=== PATIENT | male | born 1965 | race Caucasian/White ===

== ENCOUNTER → 2016-06-10 | Outpatient (CLI) | payer OTHER ==
--- NOTE | 2016-06-10 15:46 | CR ---
EXAMINATION: Two-view chest (PA and Lateral views). HISTORY: COPD. FINDINGS: The trachea is midline. The cardiomediastinal silhouette is within normal limits. No pulmonary infil trates, effusions or pneumothorax. Old left-sided rib fractures. Anterior fusion hardware is noted. IMPRESSION: No acute cardiopulmonary process.
[2016-06-10 16:21] LABS: CHLORIDE,CL 105 mmol/L (98-110); SODIUM,NA 138 mmol/L (136-146)
== END | disposition home or self-care (01) ==
LOC: MW.CHIM 14:55
PROVIDERS: ATTEND Internal Medicine
DX: J44.9 Chronic obstructive pulmonary disease, unspecified (principal); I10 Essential (primary) hypertension
CPT/HCPCS: 36415; 71020; 71020-26; 80053; 81001; 85025; 85610; 85730; 93005

== ENCOUNTER 2017-08-27 07:27 | Day surgery (SDC) | payer OTHER ==
[~2017-08-27 07:27] MED LIST: Lactated Ringers 1,000 ML IV SCH; Lidocaine 2% 5 ML SDV ONE; Propofol 200 MG/20 ML SDV ONE; fentaNYL 100 MCG/2 ML SDV ONE
[2017-08-27] MEDS ORDERED: Albuterol/Ipratropium 3.0-0.5 MG/3 ML Neb Soln NEB PRN (07:30)
--- NOTE | 2017-08-27 08:32 | PCM.PREANE ---
Preanesthetic Assessment - Anesthesia/Transfusion/Family Hx Anesthesia History: Prior Anesthesia Without Reaction Other Type of Anesthesia Reaction Comment: Dawson any known problems in past, no known family hx: problms Family History of Anesthesia Reaction: No Transfusion History: No Prior Transfusion(s) Intubation History: Unknown - Review of Systems General: No Symptoms Pulmonary: No Symptoms Cardiovascular: No Symptoms Gastrointestinal: No Symptoms, Other (multiple polyos 3 years ago ) Neurological: No Symptoms Other: Reports: None - Physical Assessment Height: 1.91 m Weight: 135.624 kg ASA Class: 3 Mental Status: Alert & Oriented x3 Airway Class: Mallampati = 2 Dentition: Reports: Normal Dentition, Broken Tooth/Teeth (chipped tooth left lower (back)) Thyro-Mental Finger Breadths: 3 Mouth Opening Finger Breadths: 3 ROM/Head Extension: Full Lungs: Clear to Auscultation, Normal Respiratory Effort Cardiovascular: Regular Rate, Regular Rhythm - Allergies Allergies/Adverse Reactions: Allergies Allergy/AdvReac Type Severity Reaction Status Date / Time No Known Allergies Allergy Verified 08/22/17 08:04 - Blood Blood Available: No - Anesthesia Plan Pre-Op Medication Ordered: None - Acknowledgements Anesthesia Type Planned: MAC Pt an Appropriate Candidate for the Planned Anesthesia: Yes Alternatives and Risks of Anesthesia Discussed w Pt/Guardian: Yes Pt/Guardian Understands and Agrees with Anesthesia Plan: Yes PreAnesthesia Questionnaire HEENT History: Reports: Hard of Hearing, Other (See Below) Other HEENT History: wears glasses, [place] hearing aids Cardiovascular History: Reports: Hypertension Respiratory History: Reports: Asthma, COPD Gastrointestinal History: Reports: Colon Polyp Genitourinary History: Reports: None Musculoskeletal History: Reports: Arthritis, Neck Pain, Chronic Neurological History: Reports: Neuropathy, Peripheral Psychiatric History: Reports: Anxiety Endocrine/Metabolic History: Reports: Diabetes, Type II, Obesity/BMI 30+ Hematologic History: Reports: None Dermatologic History: Reports: None - Past Surgical History Head Surgeries/Procedures: HEENT Surgical History: Reports: Tonsillectomy GI Surgical History: Reports: Appendectomy, Colonoscopy (3 years ago, multiple polyps) Neurological Surgical History: Reports: C-Spine Other Neurological Surgeries/Procedures: neck surgery x2, plate and screws to neck Musculoskeletal Surgical History: Reports: Arthroscopic Knee - SUBSTANCE USE Smoking Status *Q: Current Every Day Smoker (1/2 ppd) Tobacco Use Within Last Twelve Months: Cigarettes Recreational Drug Use History: No - HOME MEDS Home Medications: Home Meds Enalapril Maleate 1 tab PO BRK 04/01/14 [History] Albuterol Sulfate [Proair Hfa] 2 puff INH ASDIRECTED PRN 08/22/17 [History] Cyanocobalamin/FA/Pyridoxine [Folbic Tablet] 1 tab PO BID 08/22/17 [History] DULoxetine HCl [Cymbalta] 90 mg PO DAILY 08/22/17 [History] Diclofenac Sodium 1 applic TOP ASDIRECTED PRN 08/22/17 [History] Gabapentin [Neurontin] 2 tab PO TID 08/22/17 [History] Glycopyrrolate/Formoterol Fum [Bevespi Aerosphere Inhaler] 2 puff INH BID [History] Hydrocodone/Acetaminophen [Hydrocodon-Acetaminophen 5-325] 1 tab PO ASDIRECTED PRN 08/22/17 [History] Ketamine Compounded Cream 1 applic TOP ASDIRECTED PRN 08/22/17 [History] Lidocaine/Prilocaine [Lidocaine-Prilocaine Cream] 1 applic TOP ASDIRECTED PRN [History] Ozempic 0.5 mg SUBCUT WEEKLY 08/22/17 [History] - CURRENT (IN HOUSE) MEDS Current Meds: Current Medications Albuterol/Ipratropium (Duoneb 3.0-0.5 Mg/3 Ml) 3 ml NEB ONETIME PRN PRN Reason: Shortness of Breath Lactated Ringer's (Ringers, Lactated) 1,000 mls @ 125 mls/hr IV ASDIRECTED [facility] Discontinued Medications Fentanyl (Sublimaze) Confirm Administered Dose 100 mcg .ROUTE .STK-MED ONE Stop: 08/27/17 07:14 Lidocaine (Xylocaine-Mpf 2%) Confirm Administered Dose 5 ml .ROUTE .STK-MED ONE Stop: 08/27/17 07:14 Propofol (Diprivan 20 Ml) Confirm Administered Dose 400 mg .ROUTE .STK-MED ONE Stop: 08/27/17 07:14
--- NOTE | 2017-08-27 09:17 | PCM.OPNOTE ---
- General Post-Op/Procedure Note Date of Surgery/Procedure: 08/27/17 Operative Procedure(s): Colonoscopy with snare transverse colon polypectomy Pre Op Diagnosis: Personal history of colon polyps. Change in bowel habits. Post-Op Diagnosis: Transverse colon polyp Anesthesia Technique: MAC (ASA III) Primary Surgeon: Carroll Fierro Condition: Good Free Text/Narrative:: DICTATION [id number] CPT CODE [id number]
[2017-08-27] MEDS ORDERED: Lactated Ringers 1,000 ML IV SCH (09:30)
[2017-08-27 09:31] VITALS: BP 132/72
--- NOTE | 2017-08-27 13:18 | OR ---
SURGEON: Carroll Fierro M.D. DATE OF PROCEDURE: 08/27/2017 OPERATIONS PERFORMED: Colonoscopy with snare, transverse colon polypectomy. ANESTHESIA: MAC. ASA CLASSIFICATION: III. PREOPERATIVE DIAGNOSES: 1. Personal history of colon polyps. 2. Change in bowel habits. POSTOPERATIVE DIAGNOSIS: Transverse colon polyp. DESCRIPTION OF PROCEDURE: The patient was taken to the endoscopy room and positioned on the endoscopy table in the left lateral decubitus position. Time-out was called for appropriate identification of the patient and procedure. Monitored anesthesia care was provided. The colonoscope was inserted into the rectum and advanced without difficulty to the cecum where the colonoscope was retroflexed to visualize the ascending colon from below. The colonoscope was then straightened and slowly withdrawn. The cecum, ascending colon, and hepatic flexure showed no tumors, polyps, diverticula, or angiodysplastic changes. One polyp was encountered in the distal transverse colon and removed with snare electrocautery. The specimen was recovered in the suction trap. Biopsy forceps was used to trim a little bit more of the polyp that was above the snare sunny. No significant bleeding was noted. The remainder of the transverse colon, splenic flexure, descending colon, sigmoid colon, rectum were again very well visualized. Again, no tumors, polyps, diverticula, or angiodysplastic changes were noted. Once the colonoscope was withdrawn to the rectum, it was retroflexed to visualize the anal orifice from above. No tumors or polyps were seen and there were no acute hemorrhoidal changes. The colonoscope was then straightened, the rectum aspirated, and the colonoscope removed. The patient tolerated the procedure well and was taken to recovery room in stable condition. ROSANA SHERMAN /[id number]
== END 2017-08-27 10:30 | disposition home or self-care (01) ==
LOC: MW.SDS 07:27
PROVIDERS: ATTEND Surgery
DX: R19.4 Change in bowel habit (principal); D12.3 Benign neoplasm of transverse colon; I10 Essential (primary) hypertension; E11.9 Type 2 diabetes mellitus without complications; J44.9 Chronic obstructive pulmonary disease, unspecified; F17.210 Nicotine dependence, cigarettes, uncomplicated; E66.9 Obesity, unspecified; Z68.37 Body mass index [BMI] 37.0-37.9, adult; F41.9 Anxiety disorder, unspecified; Z86.010 Personal history of colon polyps; Z79.899 Other long term (current) drug therapy
CPT/HCPCS: 45385; 82962; J3010; J7120; 88305; J2704

== ENCOUNTER 2017-08-28 14:29 | Inpatient (IN) | payer OTHER ==
--- NOTE | 2017-08-28 15:05 | EDM.PDOC ---
ED HPI GENERAL MEDICAL PROBLEM - General Chief Complaint: Abdominal Pain Stated Complaint: PAIN Time Seen by Provider: 08/28/17 14:50 Source of Information: Reports: Patient History Limitations: Reports: No Limitations - History of Present Illness INITIAL COMMENTS - FREE TEXT/NARRATIVE: HISTORY AND PHYSICAL: History of present illness: [Patient comes to the emergency room complaining of abdominal pain. Had a colonoscopy yesterday morning with Dr. Fierro. States the colonoscopy went well and he was discharged from same day surgery by 11 AM. He was very hungry upon discharge so he ate a sandwich and divehi fries. He vomited at 3 PM and 5: 30 PM yesterday. Took 3 Gas-X at 6:30 last evening. Soon after sharp abdominal pains began through his abdomen. This has continued into today. Is affecting his upper and lower abdomen. Has been passing a small amount of flatulence. He estimates that he passed 1 tablespoon of stool yesterday. He has not had much appetite since he ate yesterday. Noted a temperature of 99.4 at home today. He took some ibuprofen at 7 PM last night and applied a heating pad which really didn't improve his symptoms. His abdomen is very tender when he pushes on it and with position changes. No chills, chest pain, shortness of breath or difficulty breathing. No vomiting since last night. Is drinking a lot of fluids but doesn't believe that he is urinating much. Has not noticed any swelling or pain to his extremities. No weakness numbness or tingling or loss of consciousness. Admits to regular tobacco use. Medical history significant for hypertension, COPD, osteoarthritis, peripheral neuropathy, type 2 diabetes. Surgical history includes tonsillectomy, appendectomy, colonoscopy on August 27, 2017 with 1 polyp biopsy.] Review of systems: As per history of present illness and below otherwise all systems reviewed and negative. Past medical history: As per history of present illness and as reviewed below otherwise noncontributory. Surgical history: As per history of present illness and as reviewed below otherwise noncontributory. Social history: No reported history of drug or alcohol abuse. Family history: As per history of present illness and as reviewed below otherwise noncontributory. Physical exam: HEENT: Atraumatic, normocephalic. Oral mucous membranes are moist and pink. Neck supple no lymphadenopathy. Lungs: Moderate inspiratory and expiratory wheezing appreciated throughout all lung davis. breath sounds equal bilaterally. Heart: S1S2, regular, negative for clicks, rubs, or JVD. Abdomen: Bowel sounds are hypoactive but present throughout. Is nondistended. He is tender with light palpation throughout his entire abdomen. Masses guarding or rebound appreciated. Negative for costovertebral tenderness. Pelvis: Stable nontender. Genitourinary: Deferred. Rectal: Deferred. Extremities: Atraumatic, negative for cords or calf pain. No swelling or cyanosis to feet or lower legs.ar unremarkable. Neuro: Awake, alert, oriented. Motor and sensory unremarkable throughout. Exam nonfocal. Alert, oriented, pleasant and conversational. Diagnostics: [CBC, CMP, urinalysis with micro-, blood cultures x2, lactic acid, CT abdomen and pelvis with contrast] Therapeutics: [1 liter NS at 125mL/hour, Morphine 4mg IV, Zosyn 3.375mg] Impression: [bowel microperforation, s/p colonoscopy] Plan: [Dr. Cynthia Trent calls with report of fat stranding around the mid transverse colon. Air is noted within and outside of the abdominal wall. These findings are likely attributed to a microperforation. No abscess or diverticular disease appreciated. WBC 10.76, Na 135, BUN 16, creatinine 1.4, Urine is dark yellow and clear. Nitrites negative. Dr. Carroll Fierro sees patient in the ER at 1720 and admits patient. He requests that orders for NS and Zosyn be DC'd, and he will write the orders that he would like. ] Definitive disposition and diagnosis as appropriate pending reevaluation and review of above. Upper Abdominal Pain Score (Numeric/FACES): 3 - Related Data Allergies Allergy/AdvReac Type Severity Reaction Status Date / Time No Known Allergies Allergy Verified 08/28/17 14:34 Home Meds: Home Meds Enalapril Maleate 1 tab PO DAILY 04/01/14 [History] Albuterol Sulfate [Proair Hfa] 2 puff INH ASDIRECTED PRN 08/22/17 [History] Cyanocobalamin/FA/Pyridoxine [Folbic Tablet] 1 tab PO BID 08/22/17 [History] DULoxetine HCl [Cymbalta] 90 mg PO DAILY 08/22/17 [History] Diclofenac Sodium 1 applic TOP ASDIRECTED PRN 08/22/17 [History] Gabapentin [Neurontin] 2 tab PO TID 08/22/17 [History] Glycopyrrolate/Formoterol Fum [Bevespi Aerosphere Inhaler] 2 puff INH BID [History] Hydrocodone/Acetaminophen [Hydrocodon-Acetaminophen 5-325] 1 tab PO ASDIRECTED PRN 08/22/17 [History] Ozempic 0.5 mg SUBCUT WEEKLY 08/22/17 [History] Past Medical History HEENT History: Reports: Hard of Hearing, Other (See Below) Other HEENT History: wears glasses, [place] hearing aids Cardiovascular History: Reports: Hypertension Respiratory History: Reports: Asthma, COPD Gastrointestinal History: Reports: Colon Polyp Genitourinary History: Reports: None Musculoskeletal History: Reports: Arthritis, Neck Pain, Chronic Neurological History: Reports: Neuropathy, Peripheral Psychiatric History: Reports: Anxiety, Depression Endocrine/Metabolic History: Reports: Diabetes, Type II, Obesity/BMI 30+ Hematologic History: Reports: None Dermatologic History: Reports: None - Infectious Disease History Infectious Disease History: Reports: None - Past Surgical History HEENT Surgical History: Reports: Tonsillectomy GI Surgical History: Reports: Appendectomy, Colonoscopy Other GI Surgeries/Procedures: colonoscopy 08/27/2017 Neurological Surgical History: Reports: C-Spine Other Neurological Surgeries/Procedures: neck surgery x2, plate and screws to neck Musculoskeletal Surgical History: Reports: Arthroscopic Knee Social & Family History - Family History Family Medical History: Noncontributory - Tobacco Use Smoking Status *Q: Current Every Day Smoker Years of Tobacco use: 35 Packs/Tins Daily: 0.3 - Caffeine Use Caffeine Use: Reports: Coffee, Soda - Alcohol Use Days Per Week of Alcohol Use: 1 Number of Drinks Per Day: 4 Total Drinks Per Week: 4 Date of Last Drink: 08/24/17 - Recreational Drug Use Recreational Drug Use: No ED ROS GENERAL - Review of Systems Review Of Systems: ROS reveals no pertinent complaints other than HPI. ED EXAM, GI/ABD - Physical Exam Exam: See Below Course - Vital Signs Last Recorded V/S: Last Vital Signs Temp 97.9 F 08/28/17 18:15 Pulse 69 08/28/17 18:15 Resp 16 08/28/17 18:15 BP 127/78 08/28/17 18:15 Pulse Ox 96 08/28/17 18:15 - Orders/Labs/Meds Orders: Active Orders 24 hr Category Date Time Status Abdomen Pelvis w Cont [CT] Stat Exams 08/28/17 14:59 Taken CULTURE BLOOD [BC] Stat Lab 08/28/17 17:15 Received CULTURE BLOOD [BC] Stat Lab 08/28/17 17:22 Received UA W/MICROSCOPIC [URIN] Stat Lab 08/28/17 15:38 Ordered Lactated Ringers [Ringers, Lactated] 1,000 ml Med 08/28/17 17:45 Active IV ASDIRECTED Blood Culture x2 Reflex Set [OM.PC] Stat Oth 08/28/17 17:04 Ordered Medication Orders Lactated Ringer's (Ringers, Lactated) 1,000 mls @ 125 mls/hr IV ASDIRECTED [facility] Last Admin: 08/28/17 17:39 Dose: 125 mls/hr Cefoxitin Sodium 1 gm/ Premix 50 mls @ 100 mls/hr IV Q6H [facility] Lactated Ringer's (Ringers, Lactated) 1,000 mls @ 125 mls/hr IV ASDIRECTED [facility] Metronidazole 500 mg/ Premix 100 mls @ 100 mls/hr IV Q6H [facility] Morphine Sulfate (Morphine Licensed Staff Mft 30 Mg In 30 Ml) 30 mg IV SEECOMMENT [facility]; Protocol Labs: Laboratory Tests 08/28/17 08/28/17 08/28/17 Range/Units 15:10 15:10 15:38 WBC 10.76 (4.0-11.0) K/uL RBC 4.64 (4.50-5.90) M/uL Hgb 15.0 (13.0-17.0) g/dL Hct 42.5 (38.0-50.0) % MCV 91.6 (80.0-98.0) fL MCH 32.3 H (27.0-32.0) pg MCHC 35.3 (31.0-37.0) g/dL RDW Std Deviation 42.9 (28.0-62.0) fl RDW Coeff of Brendon 13 (11.0-15.0) % Plt Count 160 (150-400) K/uL MPV 10.90 (7.40-12.00) fL Neut % (Auto) 74.2 (48.0-80.0) % Lymph % (Auto) 16.6 (16.0-40.0) % Phelps % (Auto) 8.5 (0.0-15.0) % Eos % (Auto) 0.4 (0.0-7.0) % Baso % (Auto) 0.3 (0.0-1.5) % Neut # (Auto) 8.0 H (1.4-5.7) K/uL Lymph # (Auto) 1.8 (0.6-2.4) K/uL Phelps # (Auto) 0.9 H (0.0-0.8) K/uL Eos # (Auto) 0.0 (0.0-0.7) K/uL Baso # (Auto) 0.0 (0.0-0.1) K/uL Nucleated RBC % 0.0 /100WBC Nucleated RBCs # 0 K/uL Lactate (0.20-2.00) mmol/L Sodium 135 L (136-148) mmol/L Potassium 4.2 (3.5-5.1) mmol/L Chloride 101 (98-107) mmol/L Carbon Dioxide 25.8 (21.0-32.0) mmol/L BUN 16 (7.0-18.0) mg/dL Creatinine 1.4 H (0.8-1.3) mg/dL Est Cr Clr Drug Dosing 75.45 mL/min Estimated GFR (MDRD) 53.6 ml/min Glucose 125 H (74-106) mg/dL Calcium 8.6 (8.5-10.1) mg/dL Total Bilirubin 2.0 H (0.2-1.0) mg/dL AST 23 (15-37) IU/L ALT 46 (14-63) IU/L Alkaline Phosphatase 81 (46-116) U/L Total Protein 7.0 (6.4-8.2) g/dL Albumin 3.4 (3.4-5.0) g/dL Globulin 3.6 H (2.0-3.5) g/dL Albumin/Globulin Ratio 0.9 L (1.3-2.8) Urine Color DARK YELLOW Urine Appearance CLEAR Urine pH 6.5 (5.0-8.0) Ur Specific [place] 1.020 (1.001-1.035) Urine Protein 30 (NEGATIVE) mg/dL Urine Glucose (UA) NEGATIVE (NEGATIVE) mg/dL Urine Ketones TRACE H (NEGATIVE) mg/dL Urine Occult Blood NEGATIVE (NEGATIVE) Urine Nitrite NEGATIVE (NEGATIVE) Urine Bilirubin NEGATIVE (NEGATIVE) Urine Urobilinogen 2.0 H (<2.0) EU/dL Ur Leukocyte Esterase NEGATIVE (NEGATIVE) Urine RBC 0-2 (0-2/HPF) Urine WBC 0-1 (0-5/HPF) Ur Epithelial Cells OCCASIONAL (NONE-FEW) Urine Bacteria FEW (NEGATIVE) Urine Mucus LIGHT (NONE-MOD) 08/28/17 Range/Units 17:15 WBC (4.0-11.0) K/uL RBC (4.50-5.90) M/uL Hgb (13.0-17.0) g/dL Hct (38.0-50.0) % MCV (80.0-98.0) fL MCH (27.0-32.0) pg MCHC (31.0-37.0) g/dL RDW Std Deviation (28.0-62.0) fl RDW Coeff of Brendon (11.0-15.0) % Plt Count (150-400) K/uL MPV (7.40-12.00) fL Neut % (Auto) (48.0-80.0) % Lymph % (Auto) (16.0-40.0) % Phelps % (Auto) (0.0-15.0) % Eos % (Auto) (0.0-7.0) % Baso % (Auto) (0.0-1.5) % Neut # (Auto) (1.4-5.7) K/uL Lymph # (Auto) (0.6-2.4) K/uL Phelps # (Auto) (0.0-0.8) K/uL Eos # (Auto) (0.0-0.7) K/uL Baso # (Auto) (0.0-0.1) K/uL Nucleated RBC % /100WBC Nucleated RBCs # K/uL Lactate 1.7 (0.20-2.00) mmol/L Sodium (136-148) mmol/L Potassium (3.5-5.1) mmol/L Chloride (98-107) mmol/L Carbon Dioxide (21.0-32.0) mmol/L BUN (7.0-18.0) mg/dL Creatinine (0.8-1.3) mg/dL Est Cr Clr Drug Dosing mL/min Estimated GFR (MDRD) ml/min Glucose (74-106) mg/dL Calcium (8.5-10.1) mg/dL Total Bilirubin (0.2-1.0) mg/dL AST (15-37) IU/L ALT (14-63) IU/L Alkaline Phosphatase (46-116) U/L Total Protein (6.4-8.2) g/dL Albumin (3.4-5.0) g/dL Globulin (2.0-3.5) g/dL Albumin/Globulin Ratio (1.3-2.8) Urine Color Urine Appearance Urine pH (5.0-8.0) Ur Specific [place] (1.001-1.035) Urine Protein (NEGATIVE) mg/dL Urine Glucose (UA) (NEGATIVE) mg/dL Urine Ketones (NEGATIVE) mg/dL Urine Occult Blood (NEGATIVE) Urine Nitrite (NEGATIVE) Urine Bilirubin (NEGATIVE) Urine Urobilinogen (<2.0) EU/dL Ur Leukocyte Esterase (NEGATIVE) Urine RBC (0-2/HPF) Urine WBC (0-5/HPF) Ur Epithelial Cells (NONE-FEW) Urine Bacteria (NEGATIVE) Urine Mucus (NONE-MOD) Meds: Medications Generic Name Dose Route Start Last Admin Trade Name Freq PRN Reason Stop Dose Admin Lactated Ringer's 1,000 mls @ 125 mls/hr 08/28/17 17:45 08/28/17 17:39 Ringers, Lactated IV 125 mls/hr ASDIRECTED [facility] Administration Cefoxitin Sodium 1 gm/ Premix 50 mls @ 100 mls/hr 08/29/17 00:00 IV Q6H [facility] Lactated Ringer's 1,000 mls @ 125 mls/hr 08/28/17 17:45 Ringers, Lactated IV ASDIRECTED [facility] Metronidazole 500 mg/ Premix 100 mls @ 100 mls/hr 08/28/17 19:00 IV Q6H [facility] Morphine Sulfate 30 mg 08/28/17 18:00 Morphine Licensed Staff Mft 30 Mg In 30 Ml IV [facility]EC[facility] Protocol Discontinued Medications Generic Name Dose Route Start Last Admin Trade Name Freq PRN Reason Stop Dose Admin Piperacillin Sod/Tazobactam 50 mls @ 100 mls/hr 08/28/17 17:05 08/28/17 18:16 Sod 3.375 gm/ Sodium Chloride IV 08/28/17 17:34 Not Given ONETIME ONE Sodium Chloride 1,000 mls @ 125 mls/hr 08/28/17 17:04 08/28/17 18:15 Normal Saline IV 08/29/17 01:03 Not Given STAT ONE Cefoxitin Sodium 2 gm/ Premix 50 mls @ 100 mls/hr 08/28/17 17:46 08/28/17 18: 13 IV 08/28/17 18:15 100 mls/hr ONETIME ONE Administration Metronidazole 500 mg/ Premix 100 mls @ 100 mls/hr 08/28/17 18:00 IV QID [facility] Iopamidol 85 ml 08/28/17 16:11 08/28/17 16:15 Isovue Multipack-370 (76%) IVPUSH 08/28/17 16:12 85 ml ONETIME STA Administration Morphine Sulfate 4 mg 08/28/17 17:05 08/28/17 17:40 Morphine IVPUSH 08/28/17 17:06 4 mg ONETIME ONE Administration Departure - Departure Time of Disposition: 17:40 Disposition: Admitted As Inpatient 67 Clinical Impression: Perforation of colon as colonoscopy complication - Discharge Information - My Orders Last 24 Hours: My Active Orders 08/28/17 14:59 Abdomen Pelvis w Cont [CT] Stat 08/28/17 15:38 UA W/MICROSCOPIC [URIN] Stat 08/28/17 17:04 Blood Culture x2 Reflex Set [OM.PC] Stat 08/28/17 17:15 CULTURE BLOOD [BC] Stat 08/28/17 17:22 CULTURE BLOOD [BC] Stat - Assessment/Plan Last 24 Hours: My Active Orders 08/28/17 14:59 Abdomen Pelvis w Cont [CT] Stat 08/28/17 15:38 UA W/MICROSCOPIC [URIN] Stat 08/28/17 17:04 Blood Culture x2 Reflex Set [OM.PC] Stat 08/28/17 17:15 CULTURE BLOOD [BC] Stat 08/28/17 17:22 CULTURE BLOOD [BC] Stat
[2017-08-28] MEDS ORDERED: Iopamidol 755 MG/ML 500 ML Multipack Bottle IVPUSH STA (16:11)
[2017-08-28] MEDS ORDERED: Sodium Chloride 0.9% 1,000 ML IV ONE (17:04)
[2017-08-28] MEDS ORDERED: Morphine 4 MG/ML Syringe IVPUSH ONE (17:05)
[2017-08-28] MEDS ORDERED: Piperacillin/Tazobactam 3.375 GM in Sodium Chloride 0.9% 50 ML IV ONE (17:05)
[2017-08-28] MEDS: Lactated Ringers 1,000 ML IV SCH (17:39)
[2017-08-28] MEDS ORDERED: Lactated Ringers 1,000 ML IV SCH (17:45)
[2017-08-28] MEDS ORDERED: cefOXitin 2 GM in Premix Bag 1 BAG IV ONE (17:46)
--- NOTE | 2017-08-28 17:51 | PCM.HP ---
H&P History of Present Illness - General Date of Service: 08/28/17 Admit Problem/Dx: Admission Diagnosis/Problem Admission Diagnosis/Problem Perforation of intestine Source of Information: Patient, Family History Limitations: Reports: No Limitations - History of Present Illness Initial Comments - Free Text/Narative: Patient is a 51-year-old gentleman who underwent colonoscopy with snare, distal transverse colon polypectomy on August 27. He did develop abdominal pain last night but did not bring this to everyone's attention. This was associated with nausea and vomiting. He denies any fever or chills. Pain did not improve and he called the office this morning stating he felt a little bit better. He was cautioned that if he did not improve significantly through the day and he should present to the emergency room. He did present this afternoon and workup in the emergency room included laboratory evaluation and a CT scan of the abdomen. The CT scan of the abdomen was read as showing a microperforation with possible small amount of air in the bowel wall or just outside the bowel wall. No abscess was noted. There is no large pneumoperitoneum. Laboratory evaluation including a white count did not reveal any leukocytosis, left shift, or thrombocytopenia. He currently states his pain is a 2 when he is laying still but a 7 or 8, when he gets out of bed. Symptom Onset Date: 08/27/17 Duration of Symptoms: Reports: Hour(s):, Getting Worse, Heavy Location: Reports: Abdomen Quality: Reports: Pressure, Throbbing Severity: Moderate Improves with: Reports: Immobilization, Rest Worsens with: Reports: Movement Context: Reports: Sick Contact Associated Symptoms: Reports: Loss of Appetite, Malaise, Nausea/Vomiting. Denies: Fever/Chills Upper Abdominal Pain Score (Numeric/FACES): 3 - Related Data Allergies/Adverse Reactions: Allergies Allergy/AdvReac Type Severity Reaction Status Date / Time No Known Allergies Allergy Verified 08/28/17 14:34 Home Medications: Home Meds Enalapril Maleate 1 tab PO DAILY 04/01/14 [History] Albuterol Sulfate [Proair Hfa] 2 puff INH ASDIRECTED PRN 08/22/17 [History] Cyanocobalamin/FA/Pyridoxine [Folbic Tablet] 1 tab PO BID 08/22/17 [History] DULoxetine HCl [Cymbalta] 90 mg PO DAILY 08/22/17 [History] Diclofenac Sodium 1 applic TOP ASDIRECTED PRN 08/22/17 [History] Gabapentin [Neurontin] 2 tab PO TID 08/22/17 [History] Glycopyrrolate/Formoterol Fum [Bevespi Aerosphere Inhaler] 2 puff INH BID [History] Hydrocodone/Acetaminophen [Hydrocodon-Acetaminophen 5-325] 1 tab PO ASDIRECTED PRN 08/22/17 [History] Ozempic 0.5 mg SUBCUT WEEKLY 08/22/17 [History] Past Medical History HEENT History: Reports: Hard of Hearing, Other (See Below) Other HEENT History: wears glasses, [place] hearing aids Cardiovascular History: Reports: Hypertension Respiratory History: Reports: Asthma, COPD Gastrointestinal History: Reports: Colon Polyp Genitourinary History: Reports: None Musculoskeletal History: Reports: Arthritis, Neck Pain, Chronic Neurological History: Reports: Neuropathy, Peripheral Psychiatric History: Reports: Anxiety, Depression Endocrine/Metabolic History: Reports: Diabetes, Type II, Obesity/BMI 30+ Hematologic History: Reports: None Dermatologic History: Reports: None - Infectious Disease History Infectious Disease History: Reports: None - Past Surgical History HEENT Surgical History: Reports: Tonsillectomy GI Surgical History: Reports: Appendectomy, Colonoscopy Other GI Surgeries/Procedures: colonoscopy 08/27/2017 Neurological Surgical History: Reports: C-Spine Other Neurological Surgeries/Procedures: neck surgery x2, plate and screws to neck Musculoskeletal Surgical History: Reports: Arthroscopic Knee Social & Family History - Family History Family Medical History: Noncontributory - Tobacco Use Smoking Status *Q: Current Every Day Smoker Years of Tobacco use: 35 Packs/Tins Daily: 0.3 - Caffeine Use Caffeine Use: Reports: Coffee, Soda - Alcohol Use Days Per Week of Alcohol Use: 1 Number of Drinks Per Day: 4 Total Drinks Per Week: 4 Date of Last Drink: 08/24/17 - Recreational Drug Use Recreational Drug Use: No H&P Review of Systems - Review of Systems: Review Of Systems: See Below General: Reports: Malaise, Weakness, Decreased Appetite. Denies: Fever, Chills , Night Sweats HEENT: Denies: Headaches, Vertigo Pulmonary: Denies: Shortness of Breath, Wheezing Cardiovascular: Denies: Chest Pain, Palpitations Gastrointestinal: Reports: Abdominal Pain, Anorexia, Decreased Appetite, Nausea , Vomiting. Denies: Black Stool, Bloody Stool, Constipation, Diarrhea, Flatus, Hematochezia, Melena Genitourinary: Denies: Dysuria, Frequency, Burning Musculoskeletal: Denies: Neck Pain Skin: Denies: Cyanosis, Jaundice, Mottled, Pallor Psychiatric: Denies: Confusion, Depression, Anxiety Neurological: Reports: No Symptoms Hematologic/Lymphatic: Denies: Anemia, Easy Bleeding Immunologic: Reports: No Symptoms Exam - Exam Exam: See Below - Vital Signs Vital Signs: Last Vital Signs Temp 96.8 F 08/28/17 14:38 Pulse 81 08/28/17 14:38 Resp 18 08/28/17 14:38 BP 113/77 08/28/17 14:38 Pulse Ox 96 08/28/17 14:38 Weight: 290 lb - Exam Quality Assessment: Supplemental Oxygen General: Alert, Oriented, Moderate Distress. No: Sedated, Lethargic, Obtunded HEENT: Conjunctiva Clear, EOMI, Nares Patent, Pupils Equal. No: Scleral Icterus Neck: Supple, Trachea Midline Lungs: Clear to Auscultation (distant breath sounds secondary to COPD) Cardiovascular: Regular Rate, Regular Rhythm, Normal S1, Normal S2. No: Tachycardia GI/Abdominal Exam: Soft, No Distention, Guarding, Rebound, Tender, Abnormal Bowel Sounds (hypoactive). No: Rigid (Male) Exam: No Hernia, Normal Inspection Back Exam: Normal Inspection Extremities: Normal Inspection, Normal Range of Motion Peripheral Pulses: 4+: Posterior Tibial (L), Posterior Tibial (R), Dorsalis Pedis (L), Dorsalis Pedis (R) Skin: Warm, Dry, Intact Neurological: Cranial Nerves Intact, Reflexes Equal Bilateral Psychiatric: Alert, Normal Affect, Normal Mood - Patient Data Lab Results Last 24 hrs: Laboratory Results - last 24 hr 08/28/17 08/28/17 08/28/17 Range/Units 15:10 15:10 15:38 WBC 10.76 (4.0-11.0) K/uL RBC 4.64 (4.50-5.90) M/uL Hgb 15.0 (13.0-17.0) g/dL Hct 42.5 (38.0-50.0) % MCV 91.6 (80.0-98.0) fL MCH 32.3 H (27.0-32.0) pg MCHC 35.3 (31.0-37.0) g/dL RDW Std Deviation 42.9 (28.0-62.0) fl RDW Coeff of Brendon 13 (11.0-15.0) % Plt Count 160 (150-400) K/uL MPV 10.90 (7.40-12.00) fL Neut % (Auto) 74.2 (48.0-80.0) % Lymph % (Auto) 16.6 (16.0-40.0) % [place] % (Auto) 8.5 (0.0-15.0) % Eos % (Auto) 0.4 (0.0-7.0) % Baso % (Auto) 0.3 (0.0-1.5) % Neut # (Auto) 8.0 H (1.4-5.7) K/uL Lymph # (Auto) 1.8 (0.6-2.4) K/uL [place] # (Auto) 0.9 H (0.0-0.8) K/uL Eos # (Auto) 0.0 (0.0-0.7) K/uL Baso # (Auto) 0.0 (0.0-0.1) K/uL Nucleated RBC % 0.0 /100WBC Nucleated RBCs # 0 K/uL Lactate (0.20-2.00) mmol/L Sodium 135 L (136-148) mmol/L Potassium 4.2 (3.5-5.1) mmol/L Chloride 101 (98-107) mmol/L Carbon Dioxide 25.8 (21.0-32.0) mmol/L BUN 16 (7.0-18.0) mg/dL Creatinine 1.4 H (0.8-1.3) mg/dL Est Cr Clr Drug Dosing 75.45 mL/min Estimated GFR (MDRD) 53.6 ml/min Glucose 125 H (74-106) mg/dL Calcium 8.6 (8.5-10.1) mg/dL Total Bilirubin 2.0 H (0.2-1.0) mg/dL AST 23 (15-37) IU/L ALT 46 (14-63) IU/L Alkaline Phosphatase 81 (46-116) U/L Total Protein 7.0 (6.4-8.2) g/dL Albumin 3.4 (3.4-5.0) g/dL Globulin 3.6 H (2.0-3.5) g/dL Albumin/Globulin Ratio 0.9 L (1.3-2.8) Urine Color DARK YELLOW Urine Appearance CLEAR Urine pH 6.5 (5.0-8.0) Ur Specific [place] 1.020 (1.001-1.035) Urine Protein 30 (NEGATIVE) mg/dL Urine Glucose (UA) NEGATIVE (NEGATIVE) mg/dL Urine Ketones TRACE H (NEGATIVE) mg/dL Urine Occult Blood NEGATIVE (NEGATIVE) Urine Nitrite NEGATIVE (NEGATIVE) Urine Bilirubin NEGATIVE (NEGATIVE) Urine Urobilinogen 2.0 H (<2.0) EU/dL Ur Leukocyte Esterase NEGATIVE (NEGATIVE) Urine RBC 0-2 (0-2/HPF) Urine WBC 0-1 (0-5/HPF) Ur Epithelial Cells OCCASIONAL (NONE-FEW) Urine Bacteria FEW (NEGATIVE) Urine Mucus LIGHT (NONE-MOD) 08/28/17 Range/Units 17:15 WBC (4.0-11.0) K/uL RBC (4.50-5.90) M/uL Hgb (13.0-17.0) g/dL Hct (38.0-50.0) % MCV (80.0-98.0) fL MCH (27.0-32.0) pg MCHC (31.0-37.0) g/dL RDW Std Deviation (28.0-62.0) fl RDW Coeff of Brendon (11.0-15.0) % Plt Count (150-400) K/uL MPV (7.40-12.00) fL Neut % (Auto) (48.0-80.0) % Lymph % (Auto) (16.0-40.0) % [place] % (Auto) (0.0-15.0) % Eos % (Auto) (0.0-7.0) % Baso % (Auto) (0.0-1.5) % Neut # (Auto) (1.4-5.7) K/uL Lymph # (Auto) (0.6-2.4) K/uL [place] # (Auto) (0.0-0.8) K/uL Eos # (Auto) (0.0-0.7) K/uL Baso # (Auto) (0.0-0.1) K/uL Nucleated RBC % /100WBC Nucleated RBCs # K/uL Lactate 1.7 (0.20-2.00) mmol/L Sodium (136-148) mmol/L Potassium (3.5-5.1) mmol/L Chloride (98-107) mmol/L Carbon Dioxide (21.0-32.0) mmol/L BUN (7.0-18.0) mg/dL Creatinine (0.8-1.3) mg/dL Est Cr Clr Drug Dosing mL/min Estimated GFR (MDRD) ml/min Glucose (74-106) mg/dL Calcium (8.5-10.1) mg/dL Total Bilirubin (0.2-1.0) mg/dL AST (15-37) IU/L ALT (14-63) IU/L Alkaline Phosphatase (46-116) U/L Total Protein (6.4-8.2) g/dL Albumin (3.4-5.0) g/dL Globulin (2.0-3.5) g/dL Albumin/Globulin Ratio (1.3-2.8) Urine Color Urine Appearance Urine pH (5.0-8.0) Ur Specific [place] (1.001-1.035) Urine Protein (NEGATIVE) mg/dL Urine Glucose (UA) (NEGATIVE) mg/dL Urine Ketones (NEGATIVE) mg/dL Urine Occult Blood (NEGATIVE) Urine Nitrite (NEGATIVE) Urine Bilirubin (NEGATIVE) Urine Urobilinogen (<2.0) EU/dL Ur Leukocyte Esterase (NEGATIVE) Urine RBC (0-2/HPF) Urine WBC (0-5/HPF) Ur Epithelial Cells (NONE-FEW) Urine Bacteria (NEGATIVE) Urine Mucus (NONE-MOD) Result Diagrams: 08/28/17 15:10 08/28/17 15:10 - Problem List (1) Perforation of colon as colonoscopy complication SNOMED Code(s): 30111425 ICD Code: K63.1 - PERFORATION OF INTESTINE (NONTRAUMATIC); K91.71 - ACCIDENTAL PNCTR & LAC OF A DGSTV SYS ORG DUR DGSTV SYS PROC Status: Acute Priority: High Current Visit: Yes (2) Diabetes SNOMED Code(s): 11317126 ICD Code: E11.9 - TYPE 2 DIABETES MELLITUS WITHOUT COMPLICATIONS Status: Acute Priority: Medium Current Visit: Yes Qualifiers: Diabetes mellitus type: type 2 (3) COPD (chronic obstructive pulmonary disease) SNOMED Code(s): 63360452 ICD Code: J44.9 - CHRONIC OBSTRUCTIVE PULMONARY DISEASE, UNSPECIFIED Status : Acute Priority: Medium Current Visit: Yes (4) Obesity (BMI 30-39.9) SNOMED Code(s): 126095818, 804970044 ICD Code: E66.9 - OBESITY, UNSPECIFIED Status: Acute Priority: Medium Current Visit: Yes Problem List Initiated/Reviewed/Updated: Yes Orders Last 24hrs: Active Orders 24 hr Category Date Time Status Admission Status [Patient Status] [ADT] Routine ADT 08/28/17 17:36 Active Intake and Output [RC] QSHIFT Care 08/28/17 17:36 Active Pulse Oximetry [RC] INTERMITTENT Care 08/28/17 17:36 Active RT Incentive Spirometry [RC] Q1HWA Care 08/28/17 17:36 Active Up ad Lisa [RC] ASDIRECTED Care 08/28/17 17:36 Active Vital Signs [RC] PER UNIT ROUTINE Care 08/28/17 17:36 Active Nothing Per Oral Diet [DIET] Diet 08/28/17 Dinner Active Abdomen Pelvis w Cont [CT] Stat Exams 08/28/17 14:59 Taken BMP [BASIC METABOLIC PANEL,BMP] [CHEM] AM Lab 08/29/17 05:11 Ordered CBC WITH MANUAL DIFF [HEME] AM Lab 08/29/17 05:11 Ordered CULTURE BLOOD [BC] Stat Lab 08/28/17 17:15 Received CULTURE BLOOD [BC] Stat Lab 08/28/17 17:22 Received UA W/MICROSCOPIC [URIN] Stat Lab 08/28/17 15:38 Ordered Lactated Ringers [Ringers, Lactated] 1,000 ml Med 08/28/17 17:45 Active IV ASDIRECTED Lactated Ringers [Ringers, Lactated] 1,000 ml Med 08/28/17 17:45 Ordered IV ASDIRECTED Morphine PF [Morphine [facility] [employer] 30 MG in 30 ML] Med 08/28/17 17:45 Ordered 30 mg IV SEECOMMENT cefOXitin [Mefoxin in Dextrose,Iso-Osm 1 GM/50 ML] 1 gm Med 08/29/17 00:00 Ordered Premix Bag 1 bag IV Q6H cefOXitin [Mefoxin in Dextrose,Iso-Osm 2 GM/50 ML] 2 gm Med 08/28/17 17:38 Ordered Premix Bag 1 bag IV ONETIME metroNIDAZOLE/Normal Saline [Flagyl 500 MG in NS 100 ML Med 08/28/17 18:00 Ordered ] 500 mg Premix Bag 1 bag IV QID Blood Culture x2 Reflex Set [OM.PC] Stat Oth 08/28/17 17:04 Ordered Sequential Compression Device [OM.PC] Routine Oth 08/28/17 17:36 Ordered Medication Orders Lactated Ringer's (Ringers, Lactated) 1,000 mls @ 125 mls/hr IV ASDIRECTED [facility] Last Admin: 08/28/17 17:39 Dose: 125 mls/hr Cefoxitin Sodium 2 gm/ Premix 50 mls @ 100 mls/hr IV ONETIME ONE Stop: 08/28/17 18:07 Cefoxitin Sodium 1 gm/ Premix 50 mls @ 100 mls/hr IV Q6H SINCERE Lactated Ringer's (Ringers, Lactated) 1,000 mls @ 125 mls/hr IV ASDIRECTED [facility] Metronidazole 500 mg/ Premix 100 mls @ 100 mls/hr IV QID SINCERE Morphine Sulfate (Morphine Manager Site 30 Mg In 30 Ml) 30 mg IV SEECOMMENT [facility] Assessment/Plan Comment:: CT scan images have been personally reviewed along with the radiology report. Exam is consistent with a microperforation and significant abdominal tenderness. Will treat with antibiotics, bowel rest and analgesics. Repeat labs in the morning. If symptoms improve will continue with antibiotic therapy. If not, patient will require laparotomy and surgery as indicated.
[2017-08-28] MEDS ORDERED: metroNIDAZOLE/Normal Saline 500 MG in Premix Bag 1 BAG IV SCH (18:00)
[2017-08-28] MEDS: Morphine PF 30 MG/30 ML PCA Vial IV SCH ×2 (18:53→20:07)
[2017-08-28] MEDS: metroNIDAZOLE/Normal Saline 500 MG in Premix Bag 1 BAG IV SCH (19:01)
[2017-08-28] MEDS: cefOXitin 1 GM in Premix Bag 1 BAG IV SCH (23:39)
[2017-08-29] MEDS: metroNIDAZOLE/Normal Saline 500 MG in Premix Bag 1 BAG IV SCH ×4 (00:12→18:06)
[2017-08-29] MEDS: Lactated Ringers 1,000 ML IV SCH ×2 (02:48→13:21)
[2017-08-29] MEDS: cefOXitin 1 GM in Premix Bag 1 BAG IV SCH ×4 (05:10→23:37)
--- NOTE | 2017-08-29 12:01 | PCM.SURGPN ---
- General Info Date of Service: 08/29/17 Functional Status: Reports: Pain Controlled, Ambulating, Urinating. Denies: New Symptoms - Review of Systems General: Denies: Fever, Weakness, Fatigue, Malaise HEENT: Reports: No Symptoms Pulmonary: Denies: Shortness of Breath, Pleuritic Chest Pain, Cough Cardiovascular: Denies: Chest Pain Gastrointestinal: Reports: Abdominal Pain (minimal compared to yesterday), Flatus. Denies: Diarrhea, Difficulty Swallowing, Hematochezia, Melena, Nausea, Vomiting Genitourinary: Reports: No Symptoms Musculoskeletal: Reports: No Symptoms Skin: Denies: Cyanosis, Jaundice Neurological: Reports: No Symptoms Psychiatric: Reports: No Symptoms - Patient Data Vitals - Most Recent: Last Vital Signs Temp 98.4 F 08/29/17 11:24 Pulse 62 08/29/17 11:24 Resp 14 08/29/17 11:24 BP 134/70 08/29/17 11:24 Pulse Ox 95 08/29/17 11:24 Weight - Most Recent: 291 lb 6.4 oz I&O - Last 24 Hours: Intake & Output 08/28/17 08/29/17 08/29/17 19:59 03:59 11:59 Intake Total 150 1550 Output Total 200 Balance 150 1350 Lab Results Last 24 Hrs: Laboratory Results - last 24 hr 08/28/17 08/28/17 08/28/17 Range/Units 15:10 15:10 15:38 WBC 10.76 (4.0-11.0) K/uL RBC 4.64 (4.50-5.90) M/uL Hgb 15.0 (13.0-17.0) g/dL Hct 42.5 (38.0-50.0) % MCV 91.6 (80.0-98.0) fL MCH 32.3 H (27.0-32.0) pg MCHC 35.3 (31.0-37.0) g/dL RDW Std Deviation 42.9 (28.0-62.0) fl RDW Coeff of Brendon 13 (11.0-15.0) % Plt Count 160 (150-400) K/uL MPV 10.90 (7.40-12.00) fL Neut % (Auto) 74.2 (48.0-80.0) % Lymph % (Auto) 16.6 (16.0-40.0) % [place] % (Auto) 8.5 (0.0-15.0) % Eos % (Auto) 0.4 (0.0-7.0) % Baso % (Auto) 0.3 (0.0-1.5) % Neut # (Auto) 8.0 H (1.4-5.7) K/uL Lymph # (Auto) 1.8 (0.6-2.4) K/uL [place] # (Auto) 0.9 H (0.0-0.8) K/uL Eos # (Auto) 0.0 (0.0-0.7) K/uL Baso # (Auto) 0.0 (0.0-0.1) K/uL Neutrophils % (Manual) (48.0-80.0) % Lymphocytes % (Manual) (16.0-40.0) % Monocytes % (Manual) (0.0-15.0) % Eosinophils % (Manual) (0.0-7.0) % Nucleated RBC % 0.0 /100WBC Absolute Seg Neuts (1.4-5.7) Lymphocytes # (Manual) (0.6-2.4) Monocytes # (Manual) (0.0-0.8) Eosinophils # (Manual) (0.0-0.7) Nucleated RBCs # 0 K/uL Lactate (0.20-2.00) mmol/L Sodium 135 L (136-148) mmol/L Potassium 4.2 (3.5-5.1) mmol/L Chloride 101 (98-107) mmol/L Carbon Dioxide 25.8 (21.0-32.0) mmol/L BUN 16 (7.0-18.0) mg/dL Creatinine 1.4 H (0.8-1.3) mg/dL Est Cr Clr Drug Dosing 75.45 mL/min Estimated GFR (MDRD) 53.6 ml/min Glucose 125 H (74-106) mg/dL POC Glucose (60-110) mg/dL Calcium 8.6 (8.5-10.1) mg/dL Total Bilirubin 2.0 H (0.2-1.0) mg/dL AST 23 (15-37) IU/L ALT 46 (14-63) IU/L Alkaline Phosphatase 81 (46-116) U/L Total Protein 7.0 (6.4-8.2) g/dL Albumin 3.4 (3.4-5.0) g/dL Globulin 3.6 H (2.0-3.5) g/dL Albumin/Globulin Ratio 0.9 L (1.3-2.8) Urine Color DARK YELLOW Urine Appearance CLEAR Urine pH 6.5 (5.0-8.0) Ur Specific [place] 1.020 (1.001-1.035) Urine Protein 30 (NEGATIVE) mg/dL Urine Glucose (UA) NEGATIVE (NEGATIVE) mg/dL Urine Ketones TRACE H (NEGATIVE) mg/dL Urine Occult Blood NEGATIVE (NEGATIVE) Urine Nitrite NEGATIVE (NEGATIVE) Urine Bilirubin NEGATIVE (NEGATIVE) Urine Urobilinogen 2.0 H (<2.0) EU/dL Ur Leukocyte Esterase NEGATIVE (NEGATIVE) Urine RBC 0-2 (0-2/HPF) Urine WBC 0-1 (0-5/HPF) Ur Epithelial Cells OCCASIONAL (NONE-FEW) Urine Bacteria FEW (NEGATIVE) Urine Mucus LIGHT (NONE-MOD) 08/28/17 08/28/17 08/28/17 Range/Units 17:15 19:11 22:27 WBC (4.0-11.0) K/uL RBC (4.50-5.90) M/uL Hgb (13.0-17.0) g/dL Hct (38.0-50.0) % MCV (80.0-98.0) fL MCH (27.0-32.0) pg MCHC (31.0-37.0) g/dL RDW Std Deviation (28.0-62.0) fl RDW Coeff of Brendon (11.0-15.0) % Plt Count (150-400) K/uL MPV (7.40-12.00) fL Neut % (Auto) (48.0-80.0) % Lymph % (Auto) (16.0-40.0) % [place] % (Auto) (0.0-15.0) % Eos % (Auto) (0.0-7.0) % Baso % (Auto) (0.0-1.5) % Neut # (Auto) (1.4-5.7) K/uL Lymph # (Auto) (0.6-2.4) K/uL [place] # (Auto) (0.0-0.8) K/uL Eos # (Auto) (0.0-0.7) K/uL Baso # (Auto) (0.0-0.1) K/uL Neutrophils % (Manual) (48.0-80.0) % Lymphocytes % (Manual) (16.0-40.0) % Monocytes % (Manual) (0.0-15.0) % Eosinophils % (Manual) (0.0-7.0) % Nucleated RBC % /100WBC Absolute Seg Neuts (1.4-5.7) Lymphocytes # (Manual) (0.6-2.4) Monocytes # (Manual) (0.0-0.8) Eosinophils # (Manual) (0.0-0.7) Nucleated RBCs # K/uL Lactate 1.7 (0.20-2.00) mmol/L Sodium (136-148) mmol/L Potassium (3.5-5.1) mmol/L Chloride (98-107) mmol/L Carbon Dioxide (21.0-32.0) mmol/L BUN (7.0-18.0) mg/dL Creatinine (0.8-1.3) mg/dL Est Cr Clr Drug Dosing mL/min Estimated GFR (MDRD) ml/min Glucose (74-106) mg/dL POC Glucose 100 89 (60-110) mg/dL Calcium (8.5-10.1) mg/dL Total Bilirubin (0.2-1.0) mg/dL AST (15-37) IU/L ALT (14-63) IU/L Alkaline Phosphatase (46-116) U/L Total Protein (6.4-8.2) g/dL Albumin (3.4-5.0) g/dL Globulin (2.0-3.5) g/dL Albumin/Globulin Ratio (1.3-2.8) Urine Color Urine Appearance Urine pH (5.0-8.0) Ur Specific [place] (1.001-1.035) Urine Protein (NEGATIVE) mg/dL Urine Glucose (UA) (NEGATIVE) mg/dL Urine Ketones (NEGATIVE) mg/dL Urine Occult Blood (NEGATIVE) Urine Nitrite (NEGATIVE) Urine Bilirubin (NEGATIVE) Urine Urobilinogen (<2.0) EU/dL Ur Leukocyte Esterase (NEGATIVE) Urine RBC (0-2/HPF) Urine WBC (0-5/HPF) Ur Epithelial Cells (NONE-FEW) Urine Bacteria (NEGATIVE) Urine Mucus (NONE-MOD) 08/29/17 08/29/17 08/29/17 Range/Units 05:20 05:20 06:36 WBC 6.64 (4.0-11.0) K/uL RBC 4.32 L (4.50-5.90) M/uL Hgb 13.7 (13.0-17.0) g/dL Hct 40.0 (38.0-50.0) % MCV 92.6 (80.0-98.0) fL MCH 31.7 (27.0-32.0) pg MCHC 34.3 (31.0-37.0) g/dL RDW Std Deviation 43.6 (28.0-62.0) fl RDW Coeff of Brendon 13 (11.0-15.0) % Plt Count 150 (150-400) K/uL MPV 11.10 (7.40-12.00) fL Neut % (Auto) (48.0-80.0) % Lymph % (Auto) (16.0-40.0) % [place] % (Auto) (0.0-15.0) % Eos % (Auto) (0.0-7.0) % Baso % (Auto) (0.0-1.5) % Neut # (Auto) (1.4-5.7) K/uL Lymph # (Auto) (0.6-2.4) K/uL [place] # (Auto) (0.0-0.8) K/uL Eos # (Auto) (0.0-0.7) K/uL Baso # (Auto) (0.0-0.1) K/uL Neutrophils % (Manual) 62 (48.0-80.0) % Lymphocytes % (Manual) 25 (16.0-40.0) % Monocytes % (Manual) 8 (0.0-15.0) % Eosinophils % (Manual) 5 (0.0-7.0) % Nucleated RBC % 0.0 /100WBC Absolute Seg Neuts 4.1 (1.4-5.7) Lymphocytes # (Manual) 1.7 (0.6-2.4) Monocytes # (Manual) 0.5 (0.0-0.8) Eosinophils # (Manual) 0.3 (0.0-0.7) Nucleated RBCs # K/uL Lactate (0.20-2.00) mmol/L Sodium 136 (136-148) mmol/L Potassium 4.3 (3.5-5.1) mmol/L Chloride 102 (98-107) mmol/L Carbon Dioxide 27.0 (21.0-32.0) mmol/L BUN 18 (7.0-18.0) mg/dL Creatinine 1.4 H (0.8-1.3) mg/dL Est Cr Clr Drug Dosing 75.85 mL/min Estimated GFR (MDRD) 53.6 ml/min Glucose 105 (74-106) mg/dL POC Glucose 88 (60-110) mg/dL Calcium 8.5 (8.5-10.1) mg/dL Total Bilirubin (0.2-1.0) mg/dL AST (15-37) IU/L ALT (14-63) IU/L Alkaline Phosphatase (46-116) U/L Total Protein (6.4-8.2) g/dL Albumin (3.4-5.0) g/dL Globulin (2.0-3.5) g/dL Albumin/Globulin Ratio (1.3-2.8) Urine Color Urine Appearance Urine pH (5.0-8.0) Ur Specific [place] (1.001-1.035) Urine Protein (NEGATIVE) mg/dL Urine Glucose (UA) (NEGATIVE) mg/dL Urine Ketones (NEGATIVE) mg/dL Urine Occult Blood (NEGATIVE) Urine Nitrite (NEGATIVE) Urine Bilirubin (NEGATIVE) Urine Urobilinogen (<2.0) EU/dL Ur Leukocyte Esterase (NEGATIVE) Urine RBC (0-2/HPF) Urine WBC (0-5/HPF) Ur Epithelial Cells (NONE-FEW) Urine Bacteria (NEGATIVE) Urine Mucus (NONE-MOD) Med Orders - Current: Current Medications Lactated Ringer's (Ringers, Lactated) 1,000 mls @ 125 mls/hr IV ASDIRECTED [facility] Last Admin: 08/29/17 02:48 Dose: 125 mls/hr Cefoxitin Sodium 1 gm/ Premix 50 mls @ 100 mls/hr IV Q6H [facility] Last Admin: 08/29/17 11:03 Dose: 100 mls/hr Lactated Ringer's (Ringers, Lactated) 1,000 mls @ 125 mls/hr IV ASDIRECTED [facility] Metronidazole 500 mg/ Premix 100 mls @ 100 mls/hr IV Q6H [facility] Last Admin: 08/29/17 06:04 Dose: 100 mls/hr Morphine Sulfate (Morphine Zigzagger 30 Mg In 30 Ml) 30 mg IV SEECOMMENT [facility]; Protocol Last Admin: 08/28/17 20:07 Dose: 30 mg Discontinued Medications Piperacillin Sod/Tazobactam (Sod 3.375 gm/ Sodium Chloride) 50 mls @ 100 mls/ hr IV ONETIME ONE Stop: 08/28/17 17:34 Last Admin: 08/28/17 18:16 Dose: Not Given Sodium Chloride (Normal Saline) 1,000 mls @ 125 mls/hr IV STAT ONE Stop: 08/29/17 01:03 Last Admin: 08/28/17 18:15 Dose: Not Given Cefoxitin Sodium 2 gm/ Premix 50 mls @ 100 mls/hr IV ONETIME ONE Stop: 08/28/17 18:15 Last Admin: 08/28/17 18:13 Dose: 100 mls/hr Metronidazole 500 mg/ Premix 100 mls @ 100 mls/hr IV QID [facility] Last Admin: 08/28/17 19:38 Dose: Not Given Iopamidol (Isovue Multipack-370 (76%)) 85 ml IVPUSH ONETIME STA Stop: 08/28/17 16:12 Last Admin: 08/28/17 16:15 Dose: 85 ml Morphine Sulfate (Morphine) 4 mg IVPUSH ONETIME ONE Stop: 08/28/17 17:06 Last Admin: 08/28/17 17:40 Dose: 4 mg - Exam Quality Assessment: No: Supplemental Oxygen, Urine Catheter General: Alert, Oriented, No Acute Distress HEENT: Pupils Equal, Pupils Reactive. No: Scleral Icterus Neck: Supple Lungs: Clear to Auscultation, Normal Respiratory Effort. No: Wheezing Cardiovascular: Regular Rate, Regular Rhythm GI/Abdominal Exam: Normal Bowel Sounds, Soft, No Distention, No Mass, Tender ( tenderness much improved.). No: Guarding, Rigid, Rebound Extremities: Normal Inspection Skin: Warm, Dry, Intact Neurological: No New Focal Deficit Psy/Mental Status: Alert, Normal Affect, Normal Mood - Problem List & Annotations (1) Perforation of colon as colonoscopy complication SNOMED Code(s): 82778934 Code(s): K63.1 - PERFORATION OF INTESTINE (NONTRAUMATIC); K91.71 - ACCIDENTAL PNCTR & LAC OF A DGSTV SYS ORG DUR DGSTV SYS PROC Status: Acute Priority: High Current Visit: Yes (2) Diabetes SNOMED Code(s): 44771836 Code(s): E11.9 - TYPE 2 DIABETES MELLITUS WITHOUT COMPLICATIONS Status: Acute Priority: Medium Current Visit: Yes Qualifiers: Diabetes mellitus type: type 2 (3) COPD (chronic obstructive pulmonary disease) SNOMED Code(s): 94462240 Code(s): J44.9 - CHRONIC OBSTRUCTIVE PULMONARY DISEASE, UNSPECIFIED Status : Acute Priority: Medium Current Visit: Yes (4) Obesity (BMI 30-39.9) SNOMED Code(s): 827992127, 370646923 Code(s): E66.9 - OBESITY, UNSPECIFIED Status: Acute Priority: Medium Current Visit: Yes - Problem List Review Problem List Initiated/Reviewed/Updated: Yes - My Orders Last 24 Hours: Active Orders 24 hr Category Date Time Status Admission Status [Patient Status] [ADT] Routine ADT 08/28/17 17:36 Active Accu Check [Blood Glucose Check, Bedside] [RC] Care 08/28/17 17:58 Active QIDACANDBED Intake and Output [RC] QSHIFT Care 08/28/17 17:36 Active Pulse Oximetry [RC] INTERMITTENT Care 08/28/17 17:36 Active RT Incentive Spirometry [RC] Q1HWA Care 08/28/17 17:36 Active Up ad Lisa [RC] ASDIRECTED Care 08/28/17 17:36 Active Vital Signs [RC] Q4H Care 08/28/17 17:36 Active Nothing Per Oral Diet [DIET] Diet 08/28/17 Dinner Active Abdomen Pelvis w Cont [CT] Stat Exams 08/28/17 14:59 Taken CULTURE BLOOD [BC] Stat Lab 08/28/17 17:15 Received CULTURE BLOOD [BC] Stat Lab 08/28/17 17:22 Received UA W/MICROSCOPIC [URIN] Stat Lab 08/28/17 15:38 Ordered Lactated Ringers [Ringers, Lactated] 1,000 ml Med 08/28/17 17:45 Active IV ASDIRECTED Lactated Ringers [Ringers, Lactated] 1,000 ml Med 08/28/17 17:45 Active IV ASDIRECTED Morphine PF [Morphine [employer] 30 MG in 30 ML] Med 08/28/17 18:00 Active 30 mg IV SEECOMMENT cefOXitin [Mefoxin in Dextrose,Iso-Osm 1 GM/50 ML] 1 gm Med 08/29/17 00:00 Active Premix Bag 1 bag IV Q6H metroNIDAZOLE/Normal Saline [Flagyl 500 MG in NS 100 ML Med 08/28/17 19:00 Active ] 500 mg Premix Bag 1 bag IV Q6H Blood Culture x2 Reflex Set [OM.PC] Stat Oth 08/28/17 17:04 Ordered Sequential Compression Device [OM.PC] Routine Oth 08/28/17 17:36 Ordered Medication Orders Lactated Ringer's (Ringers, Lactated) 1,000 mls @ 125 mls/hr IV ASDIRECTED [facility] Last Admin: 08/29/17 02:48 Dose: 125 mls/hr Infusion: 08/29/17 01:39 Dose: 125 mls/hr Admin: 08/28/17 17:39 Dose: 125 mls/hr Cefoxitin Sodium 1 gm/ Premix 50 mls @ 100 mls/hr IV Q6H [facility] Last Admin: 08/29/17 11:03 Dose: 100 mls/hr Infusion: 08/29/17 05:40 Dose: 100 mls/hr Admin: 08/29/17 05:10 Dose: 100 mls/hr Infusion: 08/29/17 00:09 Dose: 100 mls/hr Admin: 08/28/17 23:39 Dose: 100 mls/hr Lactated Ringer's (Ringers, Lactated) 1,000 mls @ 125 mls/hr IV ASDIRECTED [facility] Metronidazole 500 mg/ Premix 100 mls @ 100 mls/hr IV Q6H [facility] Last Admin: 08/29/17 06:04 Dose: 100 mls/hr Infusion: 08/29/17 01:12 Dose: 100 mls/hr Admin: 08/29/17 00:12 Dose: 100 mls/hr Infusion: 08/28/17 20:01 Dose: 100 mls/hr Admin: 08/28/17 19:01 Dose: 100 mls/hr Morphine Sulfate (Morphine Zigzagger 30 Mg In 30 Ml) 30 mg IV SEECOMMENT [facility]; Protocol Last Admin: 08/28/17 20:07 Dose: 30 mg - Assessment Assessment (Free Text/Narrative):: Patient is markedly improved. WBC 6K with no left shift. Blood sugar well controlled. - Plan Plan (Free Text/Narrative):: Will keep on ice chips today and home meds with just a sip of water. If he continues to improve, will consider liquid diet tomorrow and home with antibiotics in the next 48 hours.
[2017-08-29] MEDS ORDERED: Gabapentin 300 MG Cap PO SCH (12:15)
[2017-08-29] MEDS: DULoxetine 30 MG Cap PO SCH (12:54)
--- NOTE | 2017-08-29 13:27 | CT ---
EXAM DATE: 08/28/17 PATIENT'S AGE: 51 Patient: ALETHEA CERON Facility: [place], [place] Site . Site : [id number] Study: CT Abdomen/Pelvis [id number] 4:30:29 PM Ordering Physician: Doctor Cortes Final Report: INDICATION: Abdominal pain, history of colonoscopy with biopsy on August 27, 2017 TECHNIQUE: CT abdomen and pelvis acquired with 85 cc Isovue 370 IV contrast. COMPARISON: None FINDINGS: Lower chest: Small hiatal hernia. Liver: Hepatic steatosis. Spleen: Unremarkable. Pancreas: There are few calcifications in the pancreatic head. Gallbladder and bile ducts: Unremarkable. Adrenal glands: Unremarkable. Kidneys: Unremarkable. GI tract: Mild fat stranding around the mid transverse colon. There is a small amount of air which appears to be within and possibly directly outside of the inferior colonic wall at this site, best seen on image 23 series 203. No abscess. No bowel obstruction. No free fluid. There is no significant diverticular disease in the colon. Vascular structures: Unremarkable. Lymph nodes: Unremarkable. Miscellaneous: Unremarkable. No free air or significant free fluid. Pelvic Organs: Unremarkable. Bones: Unremarkable for age. IMPRESSION: Tiny amount of air either within the colonic wall or possibly directly outside of the inferior wall of the mid transverse colon with mild surrounding fat stranding. This could possibly represent a micro perforation in light of the history of recent colonoscopy with biopsy. Correlation with the site of biopsy recommended. These findings are unlikely to represent diverticulitis with microperforation since there is no significant diverticula within the remainder of the colon. These findings were Jenna Manuel [employer] at 5:02 p.m. on August 28, 2017. Hepatic steatosis. Few calcifications in the pancreatic head suggests chronic pancreatitis. Small hiatal hernia. Please note that all CT scans at this facility use dose modulation, iterative reconstruction, and/or weight-based dosing when appropriate to reduce radiation dose to as low as reasonably achievable. Dictated by Cynthia Trent MD @ Aug 28 2017 4:53PM (Electronic Signature) Report Signed by Proxy. [facility]
--- NOTE | 2017-08-29 16:54 | PCM.SN ---
- Free Text/Narrative Note: Doing well this afternoon. Called as glucose dipped to 77. Given juice and feeling better. Rates pain "1-2" whether he is up and moving or laying down. States is passing gas. PE: Abdomen is soft and nontender. Bowel sounds very active. PLAN: Will switch IV's to D5LR and supplement with juice as needed. Probably start liquids tomorrow.
[2017-08-29] MEDS: Dextrose 5%-Ringers 1,000 ML IV SCH (17:32)
[2017-08-29] MEDS: Gabapentin 300 MG Cap PO SCH (20:55)
[2017-08-29] MEDS: BEVESPI INHALER INH SCH (22:40)
[2017-08-30] MEDS: metroNIDAZOLE/Normal Saline 500 MG in Premix Bag 1 BAG IV SCH ×3 (00:28→12:00)
[2017-08-30] MEDS: Dextrose 5%-Ringers 1,000 ML IV SCH ×2 (04:17→15:50)
[2017-08-30] MEDS: cefOXitin 1 GM in Premix Bag 1 BAG IV SCH ×3 (05:33→18:00)
--- NOTE | 2017-08-30 07:45 | PCM.SURGPN ---
- General Info Date of Service: 08/30/17 POD#: 3 Post-Op Diagnosis: Microperforation following colonoscopy with snare polypectomy. Functional Status: Reports: Pain Controlled, Ambulating, Urinating - Review of Systems General: Reports: Appetite. Denies: Fever, Weakness, Fatigue, Malaise, Chills HEENT: Reports: No Symptoms Pulmonary: Reports: Shortness of Breath, Cough Cardiovascular: Reports: Chest Pain Gastrointestinal: Reports: Abdominal Pain, Flatus. Denies: Diarrhea, Nausea, Vomiting Genitourinary: Reports: No Symptoms Musculoskeletal: Reports: No Symptoms Skin: Reports: No Symptoms Neurological: Reports: No Symptoms Psychiatric: Reports: No Symptoms - Patient Data Vitals - Most Recent: Last Vital Signs Temp 97.8 F 08/30/17 04:00 Pulse 86 08/30/17 04:00 Resp 17 08/30/17 04:00 BP 111/65 08/30/17 04:00 Pulse Ox 97 08/30/17 04:00 Weight - Most Recent: 291 lb 6.4 oz I&O - Last 24 Hours: Intake & Output 08/29/17 08/30/17 08/30/17 19:59 03:59 11:59 Intake Total 1534 20 Output Total 550 1250 Balance 984 -1230 Lab Results Last 24 Hrs: Laboratory Results - last 24 hr 08/29/17 08/29/17 08/29/17 Range/Units 06:36 12:09 15:01 POC Glucose 88 84 77 (60-110) mg/dL 08/29/17 08/29/17 08/30/17 Range/Units 16:30 20:59 05:58 POC Glucose 86 98 109 (60-110) mg/dL Emre Results Last 24 Hrs: Microbiology 08/28/17 17:22 Aerobic Blood Culture - Preliminary Blood - Venous - Lab Draw NO GROWTH AFTER 1 DAY Anaerobic Blood Culture - Preliminary NO GROWTH AFTER 1 DAY 08/28/17 17:15 Aerobic Blood Culture - Preliminary Blood - Venous NO GROWTH AFTER 1 DAY Anaerobic Blood Culture - Preliminary NO GROWTH AFTER 1 DAY Med Orders - Current: Current Medications Duloxetine HCl (Cymbalta) 90 mg PO DAILY [facility] Last Admin: 08/29/17 12:54 Dose: 90 mg Enalapril Maleate (Vasotec) 10 mg PO DAILY [facility] Last Admin: 08/29/17 12:54 Dose: 10 mg Gabapentin (Neurontin) 600 mg PO BID [facility] Last Admin: 08/29/17 20:55 Dose: 600 mg Cefoxitin Sodium 1 gm/ Premix 50 mls @ 100 mls/hr IV Q6H [facility] Last Admin: 08/30/17 05:33 Dose: 100 mls/hr Metronidazole 500 mg/ Premix 100 mls @ 100 mls/hr IV Q6H [facility] Last Admin: 08/30/17 06:23 Dose: 100 mls/hr Dextrose/Ringer's (Dextrose 5%-Ringers) 1,000 mls @ 80 mls/hr IV ASDIRECTED [facility] Last Admin: 08/30/17 04:17 Dose: 125 mls/hr Bevespi Inhaler 2 each INH BID [facility] Last Admin: 08/29/17 22:40 Dose: Not Given Discontinued Medications Gabapentin (Neurontin) 300 mg PO BID [facility] Stop: 08/29/17 18:00 Last Admin: 08/29/17 12:56 Dose: 600 mg Piperacillin Sod/Tazobactam (Sod 3.375 gm/ Sodium Chloride) 50 mls @ 100 mls/ hr IV ONETIME ONE Stop: 08/28/17 17:34 Last Admin: 08/28/17 18:16 Dose: Not Given Sodium Chloride (Normal Saline) 1,000 mls @ 125 mls/hr IV STAT ONE Stop: 08/29/17 01:03 Last Admin: 08/28/17 18:15 Dose: Not Given Lactated Ringer's (Ringers, Lactated) 1,000 mls @ 125 mls/hr IV ASDIRECTED [facility] Last Admin: 08/29/17 13:21 Dose: 125 mls/hr Cefoxitin Sodium 2 gm/ Premix 50 mls @ 100 mls/hr IV ONETIME ONE Stop: 08/28/17 18:15 Last Admin: 08/28/17 18:13 Dose: 100 mls/hr Lactated Ringer's (Ringers, Lactated) 1,000 mls @ 125 mls/hr IV ASDIRECTED [facility] Metronidazole 500 mg/ Premix 100 mls @ 100 mls/hr IV QID [facility] Last Admin: 08/28/17 19:38 Dose: Not Given Iopamidol (Isovue Multipack-370 (76%)) 85 ml IVPUSH ONETIME STA Stop: 08/28/17 16:12 Last Admin: 08/28/17 16:15 Dose: 85 ml Morphine Sulfate (Morphine) 4 mg IVPUSH ONETIME ONE Stop: 08/28/17 17:06 Last Admin: 08/28/17 17:40 Dose: 4 mg Morphine Sulfate (Morphine Press Tender 30 Mg In 30 Ml) 30 mg IV SEECOMMENT [facility]; Protocol Last Admin: 08/28/17 20:07 Dose: 30 mg - Exam General: Alert, Oriented, Cooperative, No Acute Distress HEENT: Pupils Equal, Pupils Reactive, EOMI. No: Scleral Icterus Neck: Supple Lungs: Clear to Auscultation, Normal Respiratory Effort, Wheezing (minor expiratory wheezing) Cardiovascular: Regular Rate, Regular Rhythm GI/Abdominal Exam: Normal Bowel Sounds, Soft, Non-Tender, No Distention, No Mass Extremities: Normal Inspection Skin: Warm, Dry, Intact Neurological: No New Focal Deficit Psy/Mental Status: Alert, Normal Affect, Normal Mood - Problem List & Annotations (1) Perforation of colon as colonoscopy complication SNOMED Code(s): 76779403 Code(s): K63.1 - PERFORATION OF INTESTINE (NONTRAUMATIC); K91.71 - ACCIDENTAL PNCTR & LAC OF A DGSTV SYS ORG DUR DGSTV SYS PROC Status: Acute Priority: High Current Visit: Yes (2) Diabetes SNOMED Code(s): 66961245 Code(s): E11.9 - TYPE 2 DIABETES MELLITUS WITHOUT COMPLICATIONS Status: Acute Priority: Medium Current Visit: Yes Qualifiers: Diabetes mellitus type: type 2 (3) COPD (chronic obstructive pulmonary disease) SNOMED Code(s): 76840735 Code(s): J44.9 - CHRONIC OBSTRUCTIVE PULMONARY DISEASE, UNSPECIFIED Status : Acute Priority: Medium Current Visit: Yes (4) Obesity (BMI 30-39.9) SNOMED Code(s): 485912458, 013583069 Code(s): E66.9 - OBESITY, UNSPECIFIED Status: Acute Priority: Medium Current Visit: Yes - Problem List Review Problem List Initiated/Reviewed/Updated: Yes - My Orders Last 24 Hours: Active Orders 24 hr Category Date Time Status Communication Order [RC] ROUTINE Care 08/29/17 12:10 Active Clear Liquid Diet [DIET] Diet 08/30/17 Lunch Ordered DULoxetine [Cymbalta] Med 08/29/17 12:15 Active 90 mg PO DAILY Dextrose 5%-Ringers 1,000 ml Med 08/29/17 17:00 Active IV ASDIRECTED Enalapril [Vasotec] Med 08/29/17 12:15 Active 10 mg PO DAILY Gabapentin [Neurontin] Med 08/29/17 21:00 Active 600 mg PO BID Patient's Own Medication [Ptom] Med 08/29/17 21:00 Active 2 each INH BID Medication Orders Duloxetine HCl (Cymbalta) 90 mg PO DAILY [facility] Last Admin: 08/29/17 12:54 Dose: 90 mg Enalapril Maleate (Vasotec) 10 mg PO DAILY [facility] Last Admin: 08/29/17 12:54 Dose: 10 mg Gabapentin (Neurontin) 600 mg PO BID [facility] Last Admin: 08/29/17 20:55 Dose: 600 mg Cefoxitin Sodium 1 gm/ Premix 50 mls @ 100 mls/hr IV Q6H [facility] Last Admin: 08/30/17 05:33 Dose: 100 mls/hr Infusion: 08/30/17 00:07 Dose: 100 mls/hr Admin: 08/29/17 23:37 Dose: 100 mls/hr Infusion: 08/29/17 17:30 Dose: 100 mls/hr Admin: 08/29/17 17:00 Dose: 100 mls/hr Infusion: 08/29/17 11:33 Dose: 100 mls/hr Admin: 08/29/17 11:03 Dose: 100 mls/hr Infusion: 08/29/17 05:40 Dose: 100 mls/hr Admin: 08/29/17 05:10 Dose: 100 mls/hr Infusion: 08/29/17 00:09 Dose: 100 mls/hr Admin: 08/28/17 23:39 Dose: 100 mls/hr Metronidazole 500 mg/ Premix 100 mls @ 100 mls/hr IV Q6H [facility] Last Admin: 08/30/17 06:23 Dose: 100 mls/hr Infusion: 08/30/17 01:28 Dose: 100 mls/hr Admin: 08/30/17 00:28 Dose: 100 mls/hr Infusion: 08/29/17 19:06 Dose: 100 mls/hr Admin: 08/29/17 18:06 Dose: 100 mls/hr Infusion: 08/29/17 13:05 Dose: 100 mls/hr Admin: 08/29/17 12:05 Dose: 100 mls/hr Infusion: 08/29/17 07:04 Dose: 100 mls/hr Admin: 08/29/17 06:04 Dose: 100 mls/hr Infusion: 08/29/17 01:12 Dose: 100 mls/hr Admin: 08/29/17 00:12 Dose: 100 mls/hr Infusion: 08/28/17 20:01 Dose: 100 mls/hr Admin: 08/28/17 19:01 Dose: 100 mls/hr Dextrose/Ringer's (Dextrose 5%-Ringers) 1,000 mls @ 80 mls/hr IV ASDIRECTED [facility] Last Admin: 08/30/17 04:17 Dose: 125 mls/hr Infusion: 08/30/17 01:32 Dose: 125 mls/hr Admin: 08/29/17 17:32 Dose: 125 mls/hr Bevespi Inhaler 2 each INH BID [facility] Last Admin: 08/29/17 22:40 Dose: Not Given - Assessment Assessment (Free Text/Narrative):: Patient continues to improve. Denies abdominal pain, nausea or vomiting. Hasn' t used [employer]. - Plan Plan (Free Text/Narrative):: Clear liquid diet today. If tolerated, will discharge this evening.
[2017-08-30] MEDS: DULoxetine 30 MG Cap PO SCH (09:01)
[2017-08-30] MEDS: Gabapentin 300 MG Cap PO SCH (09:02)
[2017-08-30] MEDS: BEVESPI INHALER INH SCH (10:00)
[2017-08-30 16:17] VITALS: BP 136/85
--- NOTE | 2017-08-30 16:53 | PCM.DCSUM1 ---
Discharge Summary - Hospital Course Free Text/Narrative:: Patient is a 51-year-old gentleman, who underwent colonoscopy and snare transverse colon polypectomy on August 27. He developed abdominal pain that evening and presented to the emergency room on August 28. He did note nausea and vomiting. He was not passing gas. A CT scan of the abdomen suggested a possible microperforation. His abdominal exam was consistent with that. He was admitted to the hospital and started on parenteral antibiotics. He responded very well to the antibiotics with good resolution of his pain. He was kept nothing by mouth. His white count never became elevated and he did not develop any significant fever. Brief History: 51-year-old gentleman who underwent colonoscopy with snare, transverse colon polypectomy. There was no obvious perforation at the time of colonoscopy. He, however, developed abdominal pain the night of the procedure and presented to the emergency room with worsening abdominal pain on August 28. CT scan of the abdomen did suggest a microperforation. He has convalesced well during his hospital stay and been maintained on parenteral antibiotics. He was started on a clear liquid diet today. He continues to deny abdominal pain. He tolerated his diet well today and is anxious to go home. He will be discharged on Cipro and Flagyl to complete 10 days of therapy. - Discharge Data Discharge Date: 08/30/17 Discharge Disposition: Home, Self-Care 01 Condition: Stable - Discharge Diagnosis/Problem(s) (1) Perforation of colon as colonoscopy complication SNOMED Code(s): 76961244 ICD Code: K63.1 - PERFORATION OF INTESTINE (NONTRAUMATIC); K91.71 - ACCIDENTAL PNCTR & LAC OF A DGSTV SYS ORG DUR DGSTV SYS PROC Status: Acute Priority: High Current Visit: Yes (2) Diabetes SNOMED Code(s): 96069059 ICD Code: E11.9 - TYPE 2 DIABETES MELLITUS WITHOUT COMPLICATIONS Status: Acute Priority: Medium Current Visit: Yes Qualifiers: Diabetes mellitus type: type 2 (3) COPD (chronic obstructive pulmonary disease) SNOMED Code(s): 01510592 ICD Code: J44.9 - CHRONIC OBSTRUCTIVE PULMONARY DISEASE, UNSPECIFIED Status : Acute Priority: Medium Current Visit: Yes (4) Obesity (BMI 30-39.9) SNOMED Code(s): 234081263, 786838742 ICD Code: E66.9 - OBESITY, UNSPECIFIED Status: Acute Priority: Medium Current Visit: Yes - Patient Summary/Data Hospital Course: Patient was admitted to the hospital and started on parenteral antibiotics and [employer] management, pain control. He was kept nothing by mouth. During his hospital stay his abdominal pain completely resolved. His exam returned to a benign abdomen. There was never any evidence of leukocytosis or febrile episodes. He is now tolerating a liquid diet and feels like he can go home. - Patient Instructions Diet: Clear Liquid Diet Diet, Other: Stay on clear liquid diet for the next 24-48 hours. May then advance to fu Activity: As Tolerated, Rest and Relax Today Driving: May Drive Today Showering/Bathing: May Shower Notify Provider of: Fever, Increased Pain, Nausea and/or Vomiting Other/Special Instructions: Keep scheduled appointment with Dr. Fierro on . - Discharge Plan Home Medications: Home Meds Enalapril Maleate 1 tab PO DAILY 04/01/14 [History] Albuterol Sulfate [Proair Hfa] 2 puff INH ASDIRECTED PRN 08/22/17 [History] Cyanocobalamin/FA/Pyridoxine [Folbic Tablet] 1 tab PO BID 08/22/17 [History] DULoxetine HCl [Cymbalta] 90 mg PO DAILY 08/22/17 [History] Diclofenac Sodium 1 applic TOP ASDIRECTED PRN 08/22/17 [History] Gabapentin [Neurontin] 2 tab PO TID 08/22/17 [History] Glycopyrrolate/Formoterol Fum [Bevespi Aerosphere Inhaler] 2 puff INH BID [History] Hydrocodone/Acetaminophen [Hydrocodon-Acetaminophen 5-325] 1 tab PO ASDIRECTED PRN 08/22/17 [History] Ozempic 0.5 mg SUBCUT WEEKLY 08/22/17 [History] Referrals: Jonathan Mcmahon MD [Primary Care Provider] - 09/08/17 1:30 pm Carroll Fierro MD [Physician] - - Discharge Summary/Plan Comment DC Time >30 min.: No Discharge Summary/Plan Comment: Patient will be discharged from the hospital today. 2 prescriptions for Cipro and Flagyl were given. He does have a scheduled appointment to see me on September 04 and I encouraged him to keep that appointment. - Patient Data Vitals - Most Recent: Last Vital Signs Temp 95.7 F 08/30/17 16:00 Pulse 60 08/30/17 16:00 Resp 22 H 08/30/17 16:00 BP 136/85 08/30/17 16:00 Pulse Ox 98 08/30/17 16:00 Weight - Most Recent: 291 lb 6.4 oz I&O - Last 24 hours: Intake & Output 08/30/17 08/30/17 08/30/17 03:59 11:59 19:59 Intake Total 20 1759 Output Total 1250 830 Balance -1230 929 Lab Results - Last 24 hrs: Laboratory Results - last 24 hr 08/29/17 08/30/17 08/30/17 Range/Units 20:59 05:58 11:24 POC Glucose 98 109 118 H (60-110) mg/dL 08/30/17 Range/Units 11:47 POC Glucose 94 (60-110) mg/dL [place] Results - Last 24 hrs: Microbiology 08/28/17 17:22 Aerobic Blood Culture - Preliminary Blood - Venous - Lab Draw NO GROWTH AFTER 1 DAY Anaerobic Blood Culture - Preliminary NO GROWTH AFTER 1 DAY 08/28/17 17:15 Aerobic Blood Culture - Preliminary Blood - Venous NO GROWTH AFTER 1 DAY Anaerobic Blood Culture - Preliminary NO GROWTH AFTER 1 DAY Med Orders - Current: Current Medications Duloxetine HCl (Cymbalta) 90 mg PO DAILY [facility] Last Admin: 08/30/17 09:01 Dose: 90 mg Enalapril Maleate (Vasotec) 10 mg PO DAILY [facility] Last Admin: 08/30/17 09:01 Dose: 10 mg Gabapentin (Neurontin) 600 mg PO BID [facility] Last Admin: 08/30/17 09:02 Dose: 600 mg Cefoxitin Sodium 1 gm/ Premix 50 mls @ 100 mls/hr IV Q6H [facility] Last Admin: 08/30/17 11:25 Dose: 100 mls/hr Metronidazole 500 mg/ Premix 100 mls @ 100 mls/hr IV Q6H [facility] Last Admin: 08/30/17 12:00 Dose: 100 mls/hr Dextrose/Ringer's (Dextrose 5%-Ringers) 1,000 mls @ 80 mls/hr IV ASDIRECTED [facility] Last Admin: 08/30/17 15:50 Dose: 125 mls/hr Bevespi Inhaler 2 each INH BID [facility] Last Admin: 08/30/17 10:00 Dose: 2 each Discontinued Medications Gabapentin (Neurontin) 300 mg PO BID [facility] Stop: 08/29/17 18:00 Last Admin: 08/29/17 12:56 Dose: 600 mg Piperacillin Sod/Tazobactam (Sod 3.375 gm/ Sodium Chloride) 50 mls @ 100 mls/ hr IV ONETIME ONE Stop: 08/28/17 17:34 Last Admin: 08/28/17 18:16 Dose: Not Given Sodium Chloride (Normal Saline) 1,000 mls @ 125 mls/hr IV STAT ONE Stop: 08/29/17 01:03 Last Admin: 08/28/17 18:15 Dose: Not Given Lactated Ringer's (Ringers, Lactated) 1,000 mls @ 125 mls/hr IV ASDIRECTED [facility] Last Admin: 08/29/17 13:21 Dose: 125 mls/hr Cefoxitin Sodium 2 gm/ Premix 50 mls @ 100 mls/hr IV ONETIME ONE Stop: 08/28/17 18:15 Last Admin: 08/28/17 18:13 Dose: 100 mls/hr Lactated Ringer's (Ringers, Lactated) 1,000 mls @ 125 mls/hr IV ASDIRECTED [facility] Metronidazole 500 mg/ Premix 100 mls @ 100 mls/hr IV QID [facility] Last Admin: 08/28/17 19:38 Dose: Not Given Iopamidol (Isovue Multipack-370 (76%)) 85 ml IVPUSH ONETIME STA Stop: 08/28/17 16:12 Last Admin: 08/28/17 16:15 Dose: 85 ml Morphine Sulfate (Morphine) 4 mg IVPUSH ONETIME ONE Stop: 08/28/17 17:06 Last Admin: 08/28/17 17:40 Dose: 4 mg Morphine Sulfate (Morphine Api Architect 30 Mg In 30 Ml) 30 mg IV SEECOMMENT [facility]; Protocol Last Admin: 08/28/17 20:07 Dose: 30 mg
== END 2017-08-30 17:45 | disposition home or self-care (01) | DRG 394 ==
LOC: MW.ED 14:29 → MW.MS 17:36
PROVIDERS: ADMIT Surgery; ATTEND Surgery
DX: K63.1 Perforation of intestine (nontraumatic) (principal); K91.71 Accidental puncture and laceration of a digestive system organ or structure during a digestive system procedure; E11.42 Type 2 diabetes mellitus with diabetic polyneuropathy; J44.9 Chronic obstructive pulmonary disease, unspecified; E66.9 Obesity, unspecified; I10 Essential (primary) hypertension; F41.8 Other specified anxiety disorders; Z68.36 Body mass index [BMI] 36.0-36.9, adult; Z98.890 Other specified postprocedural states; Z79.899 Other long term (current) drug therapy; F17.200 Nicotine dependence, unspecified, uncomplicated
CPT/HCPCS: 36415; 74177; 74177-26; 80048; 80053; 81001; 82962; 83605; 85007; 85025; 85027; 87040; 96365; 96375; 99285; 99285-25; A9270-GY; J0694; J2270; J2274; J7042; J7120; Q9967

== ENCOUNTER 2020-08-26 13:09 | Emergency (ER) | payer BC ==
[2020-08-26] MEDS ORDERED: Fluconazole 100 MG Tab PO ONE (13:30)
--- NOTE | 2020-08-26 14:14 | EDM.PDOC ---
ED HPI GENERAL MEDICAL PROBLEM - General Chief Complaint: ENT Problem Stated Complaint: Sorethroat Time Seen by Provider: 08/26/20 13:27 - History of Present Illness INITIAL COMMENTS - FREE TEXT/NARRATIVE: HISTORY AND PHYSICAL: History of present illness: This is a 54-year-old gentleman with history significant for asthma, diabetes, hypertension who presents ER today secondary to throat redness and pus in the back of his throat that he noted today. Patient denies any recent fevers, shakes, chills, nausea, vomiting, diarrhea, dysuria, frequency, urgency. Patient reports he does have some pain discomfort with swallowing. Patient denies any HIV risk factors. Patient denies any IV drug abuse. Patient reports he has never been tested for HIV. Patient reports that he does have diabetes and is noncompliant with checking his blood sugars. Patient reports that he does have a history of COPD and utilizes inhaler but is not sure if it is just a albuterol inhaler or if he also has a steroid inhaler as well. Patient reports he does not swish and gargle after utilizing his inhaler. Patient denies any recent weight loss. Patient denies any history of immunocompromise state such as cancer or immunosuppressive medications. Patient denies any recent steroid use. Review of systems: As per history of present illness and below otherwise all systems reviewed and negative. Past medical history: As per history of present illness and as reviewed below otherwise noncontributory. Surgical history: As per history of present illness and as reviewed below otherwise noncontributory. Social history: No reported history of drug abuse. Family history: As per history of present illness and as reviewed below otherwise noncontributory. Physical exam: This patient was seen and evaluated during the 2019 SARS-CoV-2 novel coronavirus pandemic period. Community viral transmission is ongoing at time of this encounter and the emergency department is operating under pandemic response procedures. Constitutional: Patient is oriented to person, place, and time. Appears well- developed and well-nourished. No distress. HEENT: Moist mucous membranes Head: Normocephalic and atraumatic Eyes: Right eye exhibits no discharge. Left eye exhibits no discharge. No scleral icterus Neck: Normal range of motion. No tracheal deviation present. Cardiovascular: Normal rate and regular rhythm. Pulmonary: Effort normal, no respiratory distress. Abdominal: No distention Musculoskeletal: Normal range of motion Neurologic: Alert and oriented to person, place and time. Skin: [place], warm and dry. Psychiatric: Normal mood and affect. Behavior is normal. Judgment and thought content normal. Nursing note and vital signs have been reviewed Patient's ER physical exam is significant for multiple white yeastlike plaques in his posterior oropharynx that are easily scraped off with a tongue depressor with a noted erythematous base. Patient has no significant lymphadenopathy. Patient is no evidence of airway compromise. Assessment and plan: This is a 54-year-old gentleman who presents ER today with white plaques in his posterior pharynx who has signs symptoms consistent with thrush. Patient's blood sugar was unremarkable here in the ED. I have instructed patient on utilizing Definitive disposition and diagnosis as appropriate pending reevaluation and review of above. Throat Pain Score (Numeric/FACES): 5 - Related Data Allergies Allergy/AdvReac Type Severity Reaction Status Date / Time No Known Allergies Allergy Verified 08/26/20 13:34 Home Meds: Home Meds DULoxetine HCl [Cymbalta] 60 mg PO BID 08/22/17 [History] Gabapentin [Neurontin] 2 tab PO BID 08/22/17 [History] Fluconazole [Diflucan] 100 mg PO DAILY #7 tablet 08/26/20 [Rx] Losartan [Cozaar] 25 mg PO DAILY 08/26/20 [History] Past Medical History HEENT History: Reports: Hard of Hearing, Other (See Below) Other HEENT History: wears glasses, [place]inee hearing aids Cardiovascular History: Reports: Hypertension Respiratory History: Reports: Asthma, COPD Gastrointestinal History: Reports: Colon Polyp Genitourinary History: Reports: None Musculoskeletal History: Reports: Arthritis, Neck Pain, Chronic Neurological History: Reports: Neuropathy, Peripheral Psychiatric History: Reports: Anxiety, Depression Endocrine/Metabolic History: Reports: Diabetes, Type II, Obesity/BMI 30+ Hematologic History: Reports: None Dermatologic History: Reports: None - Infectious Disease History Infectious Disease History: Reports: None - Past Surgical History HEENT Surgical History: Reports: Tonsillectomy GI Surgical History: Reports: Appendectomy, Colonoscopy Other GI Surgeries/Procedures: colonoscopy 08/27/2017 Neurological Surgical History: Reports: C-Spine Other Neurological Surgeries/Procedures: neck surgery x2, plate and screws to neck Musculoskeletal Surgical History: Reports: Arthroscopic Knee Social & Family History - Family History Family Medical History: No Pertinent Family History - Caffeine Use Caffeine Use: Reports: None - Recreational Drug Use Recreational Drug Use: No ED ROS GENERAL - Review of Systems Review Of Systems: See Below ED EXAM, GENERAL - Physical Exam Exam: See Below Course - Vital Signs Last Recorded V/S: Last Vital Signs Temp 96.5 F L 08/26/20 13:36 Pulse 78 08/26/20 13:36 Resp 17 08/26/20 13:36 BP 132/81 08/26/20 13:36 Pulse Ox 96 08/26/20 13:36 - Orders/Labs/Meds Orders: Active Orders 24 hr Category Date Time Status Blood Glucose Check, Bedside [RC] ONETIME Care 08/26/20 13:30 Active Labs: Laboratory Tests 08/26/20 Range/Units 13:39 POC Glucose 138 H (70-99) mg/dL Meds: Medications Discontinued Medications Generic Name Dose Route Start Last Admin Trade Name Freemanq PRN Reason Stop Dose Admin Fluconazole 100 mg 08/26/20 13:30 08/26/20 13:35 Fluconazole 100 Mg Tab PO 08/26/20 13:31 100 mg ONETIME ONE Administration Departure - Departure Time of Disposition: 14:08 Disposition: Home, Self-Care 01 Clinical Impression: Oral thrush - Discharge Information Prescriptions: Fluconazole [Diflucan] 100 mg PO DAILY #7 tablet Instructions: Oral Thrush, Adult, [id number] Referrals: Ryann Diaz MD [Primary Care Provider] - Forms: ED Department Discharge Additional Instructions: You were seen and evaluated in the ER today secondary to redness and plaques in the back your throat. The plaques appear to be consistent with thrush which is a yeast infection in the back your throat. This was found at a higher incidence in diabetics and patients who utilize inhalers especially steroid inhalers for their asthma. You will be given Diflucan to take daily for the next 7 days. Please make sure that you swish and spit with water after utilizing your inhaler. Please make an appointment see your family doctor to be reevaluated and keep a close eye on your blood sugar. Your blood sugar today in the ER was within normal limits. The following information is given to patients seen in the emergency department who are being discharged to home. This information is to outline your options for follow-up care. We provide all patients seen in our emergency department with a follow-up referral. The need for follow-up, as well as the timing and circumstances, are variable depending upon the specifics of your emergency department visit. If you don't have a primary care physician on staff, we will provide you with a referral. We always advise you to contact your personal physician following an emergency department visit to inform them of the circumstance of the visit and for follow-up with them and/or the need for any referrals to a consulting specialist. The emergency department will also refer you to a specialist when appropriate. This referral assures that you have the opportunity for follow-up care with a specialist. All of these measure are taken in an effort to provide you with optimal care, which includes your follow-up. Under all circumstances we always encourage you to contact your private physician who remains a resource for coordinating your care. When calling for follow-up care, please make the office aware that this follow-up is from your recent emergency room visit. If for any reason you are refused follow-up, please contact the [facility] Emergency Department at and asked to speak to the emergency department charge nurse. [facility] [address] [place] [address] [place] [address] Sepsis Event Note (ED) - Evaluation Sepsis Screening Result: No Definite Risk - Focused Exam Vital Signs: Vital Signs Temp Pulse Resp BP Pulse Ox 08/26/20 13:36 96.5 F L 78 17 132/81 96 - My Orders Last 24 Hours: My Active Orders 08/26/20 13:30 Blood Glucose Check, Bedside [RC] ONETIME - Assessment/Plan Last 24 Hours: My Active Orders 08/26/20 13:30 Blood Glucose Check, Bedside [RC] ONETIME
[2020-08-26 14:23] VITALS: BP 128/72; PULSE 84
== END 2020-08-26 14:22 | disposition home or self-care (01) ==
LOC: MW.ED 13:09
DX: B37.0 Candidal stomatitis (principal); E11.9 Type 2 diabetes mellitus without complications; I10 Essential (primary) hypertension; J44.9 Chronic obstructive pulmonary disease, unspecified; E11.42 Type 2 diabetes mellitus with diabetic polyneuropathy; E66.9 Obesity, unspecified; Z68.33 Body mass index [BMI] 33.0-33.9, adult; Z79.899 Other long term (current) drug therapy
CPT/HCPCS: 82947; 99283; A9270

== ENCOUNTER 2022-02-20 11:17 | Emergency (ER) | payer BC ==
[2022-02-20] MEDS ORDERED: Sodium Chloride 0.9% 1,000 ML IV ONE ×2 (12:57→14:24)
[2022-02-20 13:58] LABS: CARBON DIOXIDE,CO2 26.9 mmol/L (21.0-32.0); POTASSIUM,K 4.3 mmol/L (3.5-5.1)
[2022-02-20] MEDS ORDERED: Iopamidol 755 MG/ML 500 ML Multipack Bottle IVPUSH ONE (14:49)
[2022-02-20 16:34] VITALS: BP 128/78; PULSE 68
== END 2022-02-20 16:32 | disposition home or self-care (01) ==
LOC: MW.ED 11:17
DX: S22.42XA Multiple fractures of ribs, left side, initial encounter for closed fracture (principal); K86.1 Other chronic pancreatitis; J44.9 Chronic obstructive pulmonary disease, unspecified; I10 Essential (primary) hypertension; E11.9 Type 2 diabetes mellitus without complications; F17.210 Nicotine dependence, cigarettes, uncomplicated; E66.9 Obesity, unspecified; Z68.34 Body mass index [BMI] 34.0-34.9, adult; Z79.899 Other long term (current) drug therapy; Z90.49 Acquired absence of other specified parts of digestive tract
CPT/HCPCS: 36415; 74177; 80053; 81003; 83690; 85025; 96360; 96361; 99284; J7030; Q9967